=== PATIENT | male | born 1995 | race Caucasian/White ===

== ENCOUNTER 2018-04-27 13:54 | Emergency (ER) | payer SELFPAY ==
[2018-04-27 14:00] VITALS: BP 128/78; PULSE 63; RESP 20; TEMP 97.6; O2SAT 95
[2018-04-27] MEDS ORDERED: Tetracaine 0.5% Ophth (OR ONLY) ONE (14:07)
[2018-04-27] MEDS ORDERED: PROPARACAINE/FLUORESCEIN SOD 100 DROP/5 ML BOTTLE OD ONE (14:18)
--- NOTE | 2018-04-27 14:24 | C.PDOC ---
History Of Present Illness 23 year old male presents to ED complaining of right eye redness and pain since 2 days ago. Patient states he was wearing contact lenses and after removing, he developed redness and pain to his right eye. Denies any visual changes, dizziness, or any physical injuries. Chief Complaint (Nursing): Eye Problem History Per: Patient History/Exam Limitations: no limitations Onset/Duration Of Symptoms: Days Current Symptoms Are (Timing): Still Present Past Medical History Reviewed: Historical Data, Nursing Documentation, Vital Signs Vital Signs: Last Vital Signs Temp 97.6 F 04/27/18 13:59 Pulse 63 04/27/18 13:59 Resp 20 04/27/18 13:59 BP 128/78 04/27/18 13:59 Pulse Ox 95 04/27/18 13:59 - Medical History PMH: No Chronic Diseases Surgical History: No Surg Hx Family History: States: No Known Family Hx - Social History Hx Tobacco Use: No Hx Alcohol Use: No Hx Substance Use: No - Immunization History Hx Tetanus Toxoid Vaccination: No Hx Influenza Vaccination: No Hx Pneumococcal Vaccination: No Review Of Systems Except As Marked, All Systems Reviewed And Found Negative. Eyes: Positive for: Pain (R eye), Redness (to R eye). Negative for: Vision Change Neurological: Negative for: Dizziness Physical Exam - Physical Exam Appears: Non-toxic, No Acute Distress Skin: Warm, Dry Head: Atraumatic, Normacephalic Eye(s): right: Other (1 o clock small cornear abrasion and conjunctival erythema) Oral Mucosa: Moist Chest: Symmetrical Cardiovascular: Rhythm Regular, No Murmur Respiratory: Normal Breath Sounds, No Rales, No Rhonchi, No Wheezing Gastrointestinal/Abdominal: Normal Exam Extremity: Bilateral: Atraumatic, Normal Color And Temperature, Normal ROM Neurological/Psych: Oriented x3, Normal Speech ED Course And Treatment O2 Sat by Pulse Oximetry: 95 (RA) Pulse Ox Interpretation: Normal Medical Decision Making Medical Decision Making: Plan: --Flucaine Eye Drops Disposition Counseled Patient/Family Regarding: Diagnosis, Need For Followup - Disposition Referrals: Aamir Warren [Staff Provider] - Disposition Time: 14:35 Condition: IMPROVED Prescriptions: Tobramycin 0.3% [Tobrex 0.3% Ophth Soln] 1 drop OD Q6 #1 bottle Instructions: Corneal Abrasion Forms: [employer]ed Opinion (Greek) - Clinical Impression Clinical Impression: Corneal abrasion - Scribe Statement The provider has reviewed the documentation as recorded by the Scribe Ambreen Harvey Provider Attestation: All medical record entries made by the Scribe were at my direction and personally dictated by me. I have reviewed the chart and agree that the record accurately reflects my personal performance of the history, physical exam, medical decision making, and the department course for this patient. I have also personally directed, reviewed, and agree with the discharge instructions and disposition.
[2018-04-27] MEDS ORDERED: PROPARACAINE/FLUORESCEIN SOD 100 DROP/5 ML BOTTLE ONE (14:28)
== END 2018-04-27 14:58 | disposition home or self-care (01) ==
LOC: C.ER 13:54
DX: S05.01XA Injury of conjunctiva and corneal abrasion without foreign body, right eye, initial encounter (principal); X58.XXXA Exposure to other specified factors, initial encounter; Y92.9 Unspecified place or not applicable